=== PATIENT | male | born 1940 | race Caucasian/White ===

== ENCOUNTER 2017-03-20 00:51 | Inpatient (IN) | payer OTHER ==
[~2017-03-20] VITALS: Ht 180.3 cm; Wt 105.2 kg
[~2017-03-20 00:51] MED LIST: ASPIRIN EC81 M1 PO; JANUVIA100 M1 PO; LISINOPRIL40 M1 PO; METFORMIN HCL1000 M1 PO; TOPROL XL100 M1 PO; ZANTAC PO
--- NOTE | 2017-03-20 13:53 | Admission Core Measures ---
Admission Meds I reviewed the following Meds: Current Medications Sig/Suri Start time Last Medication Dose Stop Time Status Admin Acetaminophen 975 MG ONCE 03/20 0000 NR (Tylenol) 03/20 2359 Lisinopril 40 MG DAILY 03/21 1000 UNVr (Prinivil) Metformin HCl 1,000 MG BID 03/20 2200 UNVr (Glucophage) Metoprolol Succinate 100 MG DAILY 03/21 1000 UNVr (Toprol Xl) Oxycodone HCl 10 MG ONCE 03/20 0000 NR (Roxicodone) 03/20 2359 Sitagliptin Phosphate 100 MG DAILY 03/21 1000 UNVr (JANUVIA) Vancomycin HCl 1,500 MG ONCE 03/20 0000 NR Sodium Chloride 250 ML 03/20 2359 (Normal Saline 0.9%) Acute Coronary Syndrome Inclusion Criteria ACS Diagnosis No Inpatient Core Measures LDL Reminder: If No, please order W/I first 24hr of stay Congestive Heart Failure Inclusion Criteria CHF Diagnosis No Cerebrovascular accident Inclusion Criteria CVA/TIA Diagnosis No Inpatient Core Measures Bedside Swallow Eval Reminder: If BSE failed, place ST order Antithrombotic Reminder: Order Antithrombotic Medication by end of day 2 Antithrombotic Reminder: Document Reason Antithrombotic Not ordered by end of day 2 AFIB/Flutter Reminder: If Present, add to problem list AFIB/Flutter Reminder: Order Anticoag Medication for pts with AFIB/Flutter Atherosclerosis Reminder: If Present, add to problem list LDL Reminder: If No, please order W/I first 24hr of stay PT Order Reminder: If No, please order Venous thromboembolism Inpatient Core Measures VTE Risk Factors: Age > 40, Surgery No [facility] VTE prophylaxis d/t No contraindications No VTE Pharm Prophylaxis d/t No contraindications Inclusion Criteria - Per Current guidelines, there needs to be overlap - treatment for the first 5 days of Warfarin therapy. - Parenteral Anticoagulation (IV or SC) needs to be - given along with Warfarin therapy. VTE Diagnosis No VTE Type NONE VTE Confirmed by (Test) NONE Problem List As ranked by this Provider includes Assessment & Plan 1. Unilateral primary osteoarthritis, right knee HOME MEDS Home Med List Aspirin (Ecotrin*) 81 MG TABLET.DR 1 TAB PO DAILY CARDIAC (Reported) Lisinopril 40 MG TABLET 1 TAB PO DAILY HTN (Reported) Metformin HCl 1,000 MG TABLET 1 TAB PO BID DM II (Reported) Metoprolol Succ XL (Toprol XL) 100 MG TAB.ER.24H 1 TAB PO DAILY HTN (Reported ) Sitagliptin Phosphate (Januvia) 100 MG TABLET 1 TAB PO DAILY DM II (Reported) [ZANTAC] 75 MG PO DAILY GERD (Reported)
[2017-03-20] MEDS ORDERED: COLACE100 M1 PO (13:55)
[2017-03-20] MEDS ORDERED: DILAUDID2 M1 PO (13:55)
[2017-03-20] MEDS ORDERED: MS CONTIN15 M2 PO (13:55)
[2017-03-20] MEDS ORDERED: MIRALAX17 G1 PO (13:55)
[2017-03-20] MEDS ORDERED: ASPIRIN EC325 M2 PO (13:55)
--- NOTE | 2017-03-20 13:58 | Patient Discharge Instructions ---
Discharge Instructions General Discharge Information You were seen/treated for: Right knee pain related to unilateral primary osteoarthritis You had these procedures: Right total knee replacement Watch for these problems: Increasing pain despite the use of pain medication Increasing redness, warmth or swelling Drainage of any type from incision Inability to bear weight on operative leg Persistent nausea and vomiting Fever greater than 101.5 degrees Do not soak the wound: Yes No bath, but you may shower: Yes Other wound care: Please keep wound clean and dry. No ointments or lotions of any type on or near incision at any time. No exceptions. Your dressing will be changed by your nurse on the second day after your surgery. Daily dry dressing changes are recommended each day thereafter. Do not soak your wound in a bath at any time until otherwise indicated by your surgeon. You may shower, please dry wound immediately after shower with a clean towel. Special Instructions: Aspirin: You are taking this medication to help prevent blood clot formation. Please take with food to protect your stomach lining. Please take as directed. Constipation: Pain medication can cause constipation. Dr. Quinteros has recommended that you take Colace and miralax each day. You may discontinue this medication if you develop loose stool or diarrhea. If you wish to continue this medication, it is available over the counter. If you are unable to move your bowels after several days, if you are unable to pass gas and are developing bloating, nausea, or vomiting as a result, please contact your doctor. Diet Continue normal diet: Yes Recommended Diet: Diabetic Activity Full Activity/No Limits: No Activity Self Limited: Yes Pounds, do NOT lift more than: 10 Acute Coronary Syndrome Inclusion Criteria At DC or during hospital stay patient has or had the following: ACS DIAGNOSIS No Discharge Core Measures Meds if any: Prescribed or Continued at Discharge Meds if any: NOT Prescribed or Continued at Discharge Congestive Heart Failure Inclusion Criteria At DC or during hospital stay patient has or had the following: CHF DIAGNOSIS No Discharge Core Measures Meds if any: Prescribed or Continued at Discharge Meds if any: NOT Prescribed or Continued at Discharge Cerebrovascular accident Inclusion Criteria At DC or during hospital stay patient has or had the following: CVA/TIA Diagnosis No Discharge Core Measures Meds if any: Prescribed or Continued at Discharge Meds if any: NOT Prescribed or Continued at Discharge Venous thromboembolism Inclusion Criteria VTE Diagnosis No VTE Type NONE VTE Confirmed by (Test) NONE Discharge Core Measures - Per Current guidelines, there needs to be overlap - treatment for the first 5 days of Warfarin therapy. - If discharged on Warfarin prior to 5 days of - overlap therapy, the patient will need to be - assessed for post discharge needs including - *Post discharge parental anticoagulation - *Warfarin and/or parental anticoagulation education - *Follow up date to check INR post discharge At least 5 days overlap therapy as Inpatient No Meds if any: Prescribed or Continued at Discharge Note: Overlap Therapy is Warfarin and Anticoagulant Meds if any: NOT Prescribed or Continued at Discharge
--- NOTE | 2017-03-20 14:01 | Surgical Discharge Summary ---
Visit Information Visit Dates Admission Date: 03/20/17 Discharge Date: 03/23/17 History of Present Illness Chief Complaint: Right knee pain secondary to unilateral primary osteoarthritis Medical History Isolation History: Standard Surgical History Pertinent Surgical History: non-contributory Review of Systems: See H&P Hospital Course Course Attending Physician: CADEN OSBORN MD Primary Care Physician: MYNOR LENTZ MD Hospital Course: Patient was admitted to the hospital for an elective total joint replacement. The procedure was tolerated well and patient was transferred to a general surgical floor. Diet was advanced and tolerated, and the patient voided spontaneously. The patient was evaluated and treated by physical therapy. At the time of hospital discharge, the vital signs were stable, neurovascular status was intact, and pain was controlled with the use of oral pain medications. Complications: none Allergies: Coded Allergies: Penicillins (CHILDHOOD 03/12/17) Disposition Summary Disposition Principal Diagnosis: Unilateral primary osteoarthritis right knee Additional Diagnosis: same as above s/p right total knee replacement (03/20/17) Discharge Disposition: home health services Discharge Instructions General Discharge Information Code Status: Full Code Patient's Diet: Diabetic, advance as tolerated Patient's Activity: WBAT Follow-Up Instructions/Appts: Follow up with Dr. Osborn in 6 weeks from date of surgery. Please call his office to arrange and/or confirm this appointment. Medications at Discharge Discharge Medications: Stop taking the following medications: Aspirin (Ecotrin*) 81 MG TABLET. ORAL DAILY Continue taking these medications: Lisinopril (Lisinopril) 40 MG TABLET 1 Tablet ORAL DAILY Metformin HCl (Metformin HCl) 1,000 MG TABLET 1 Tablet ORAL TWICE DAILY Metoprolol Succ XL (Toprol XL) 100 MG TAB.ER.24H 1 Tablet ORAL DAILY [ZANTAC] 75 Milligram ORAL DAILY Sitagliptin Phosphate (Januvia) 100 MG TABLET 1 Tablet ORAL DAILY Start taking the following new medications: Aspirin (Ecotrin*) 325 MG TABLET. 1 Tablet ORAL TWICE DAILY Qty = 60 No Refills Docusate Sodium (Colace) 100 MG CAPSULE 1 Capsule ORAL TWICE DAILY Qty = 14 No Refills Instructions: DISCONTINUE USE IF YOU DEVELOP LOOSE STOOL OR DIARRHEA Polyethylene Glycol 3350 (Miralax) 17 GRAM POWD.PACK 1 Packet ORAL DAILY Qty = 7 No Refills Instructions: dissolve in water, DISCONTINUE USE IF YOU DEVELOP LOOSE STOOL OR DIARRHEA Hydromorphone HCl (Dilaudid) 2 MG TABLET 1-2 Tablet ORAL EVERY 4-6 HOURS NEEDED as needed for PAIN Qty = 36 No Refills Copies To: TOR DUKES,MYNOR Paulson
[2017-03-20 17:30] VITALS: BP 128/70
--- NOTE | 2017-03-20 17:35 | Operative Report ---
Operative/Inv Procedure Report Surgery Date: 03/20/17 Name of Procedure: Right total knee replacement Pre-Operative Diagnosis: Primary right knee DJD Post-Operative Diagnosis: Same Estimated Blood Loss: 50ml to 100ml Surgeon/Community Educator: CADEN OSBORN MD Anesthesia: block Operative/Procedure Note Note: Description of Procedure: The patient was taken to the operating room and positively identified. After induction of spinal anesthesia and administration of appropriate pre-operative antibiotics, the patient was positioned supine on the operating room table and all bony prominences were well padded. A well-padded pneumatic tourniquet was placed on the right upper thigh. After performing a surgical timeout, the right lower extremity was prepped and draped in the usual sterile fashion. After exsanguination with Esmarch the tourniquet was inflated to 250mm of mercury. A standard medial parapatellar approach was made to the knee. This was carried down through skin and subcutaneous tissue to the level of the fascia. Meticulous hemostasis was maintained with Bovie electrocautery. The extensor mechanism and patellar retinaculum were opened sharply and the patella was everted. The infrapatellar fat was resected in order to improve exposure. Osteophytes were trimmed from the patella and femoral condyles and the patella was re-everted and tucked laterally. A medial release was performed and the cruciate ligaments were resected. The tibia was then subluxed anteriorly. Utilizing the appropriate extra-medullary guide, the proximal tibia was trimmed perpendicular to the long axis of the tibial shaft. Attention was then turned to the femur. After opening the medullary canal, the distal femoral cut was made in 6 degrees of valgus utilizing the appropriate intra-medullary guide. The extension gap was checked and found to be appropriate. The femur was then sized and the remainder of the femoral cuts were made with a size 7 4-in-1 femoral cutting guide. The flexion gap was checked and found to be symmetric and appropriate. The knee was then trialed with a size 7 femoral component, a size 7 tibial component and a size 11 mm polyethylene insert. The patella was trimmed to accept an A 38 patella. This yielded excellent range of motion, stability and patellar tracking. All trial components were removed and the knee was copiously irrigated with sterile saline. All components were cemented into place with Carmel Simplex cement. All the components were of the Carmel Triathlon knee system of the above stated sizes. The knee was again irrigated after cementation. The extensor mechanism and patellar retinaculum were repaired using interrupted #1 vicryl suture. The skin was re-approximated with 2-0 vicryl and closed with fara. A sterile dressing was applied, the tourniquet was deflated, the patient was awakened and taken to the recovery room in satisfactory condition.
--- NOTE | 2017-03-20 20:08 | NUR ---
1730 PATIENT ARRIVED TO FLOOR. ALERT AND ORIENTED X 3. ON ROOM AIR. DENIES SHORTNESS OF BREATH VITAL SIGNS STABLE. DENIES CHEST PAIN. + PULSES. HAS DEFIBRILLATOR SLIGHT NUMBNESS TO BLE. WILL CONTINUE TO MONITOR BED LOW AND LOCKED. CALL LIGHT WITHIN REACH NO DISCOMFORT/DISTRESS AT THIS TIME
[2017-03-20 20:09] VITALS: BP 104/70
--- NOTE | 2017-03-20 20:11 | PN- Orthopedic ---
Subjective Subjective: POSTOP CHECK mild postop pain rle, no n/v/cp/sob, no oob, dtv postop, trini reg diet Objective Vital Signs and I&Os Vital Signs Date Time Temp Pulse Resp B/P B/P Pulse O2 O2 Flow FiO2 Mean Ox Delivery Rate 03/20 1730 97.6 50 18 128/70 94 Room Air Physical Exam: GEN: NAD CARD: S1S2 RRR PULM: CTAB ABD: soft, nt EXT: RLE dressing CDI, ONQ in place, ttp at incision, feet warm, palp pedal pulses, sensation grossly intact, +dorsi/plantar flexion, calves soft nt, ALPS on bl Assessment/Plan Assessment/Plan A: 76yoM POD #0 sp R TKR, stable with appropriate postop pain P: - DVT ppx: ASA - ada diet as tolerated - prn pain meds - OOB, ambulate, WBAT, PT - abx x23hr postop ppx - am labs - OnQ pump - home meds, accuchecks - will dw attending Core Measures/Miscellaneous Venous Thromboembolism VTE Risk Factors: Surgery VTE Contraindications: No Contraindications VTE Diagnosis: No VTE Type: NONE VTE Confirmed by (Test): NONE Beta Brianna Is Beta Brianna a Home Med? Yes If Yes, Was This Ordered Today? Yes Antibiotics Is Patient on Antibiotics? Yes If Yes: prophylaxis
[2017-03-20 21:50] VITALS: BP 100/60
[2017-03-21] VITALS: BP 100/64
[2017-03-21 04:21] VITALS: BP 102/60
[2017-03-21 07:56] VITALS: BP 110/60
--- NOTE | 2017-03-21 08:23 | PN- Orthopedic ---
Subjective Subjective: Patient with mild pain to the posterior knee region. No acute events overnight. No fever or flulike illness. He has yet to be out of bed. Objective Vital Signs and I&Os Vital Signs Date Time Temp Pulse Resp B/P B/P Pulse O2 O2 Flow FiO2 Mean Ox Delivery Rate 03/21 0756 97.6 55 18 110/60 96 Room Air 03/21 0421 97.9 59 20 102/60 94 Room Air 03/21 0000 97.7 60 20 100/64 93 Room Air 03/20 2223 Room Air 03/20 2150 97.6 57 20 100/60 92 Room Air 03/20 2009 98.4 54 18 104/70 95 03/20 1730 97.6 50 18 128/70 94 Room Air Intake & Output 03/21 1600 03/21 0803/21 0000 03/20 1600 03/20 0803/20 0000 Intake Total 840 600 Output Total 250 350 Balance 590 250 Intake, IV 600 Intake, Oral 240 600 Output, Urine 250 350 Patient 232 lb Weight Physical Exam: Well-developed well-nourished no apparent distress. HEENT: Atraumatic, extraocular motion intact Neck: Supple, no lymphadenopathy Respiratory: No respiratory distress Extremities: No edema Right lower extremity dressing in place, Range of motion is 0-60. Compression wrap in place. ALPS in place Neurovascularly intact distally Bilateral calves are supple, nontender. Neuro: Alert and oriented x3 Psych: Mood affect normal, normal memory normal judgment. Skin: Warm and dry, no rash on exposed skin Results Last 48 Hours of Labs: Laboratory Tests 03/21 726 Chemistry Sodium Pending Potassium Pending Chloride Pending Carbon Dioxide Pending Anion Gap Pending BUN Pending Creatinine Pending BUN/Creatinine Ratio Pending Hematology CBC w Diff Pending WBC Pending RBC Pending Hgb Pending Hct Pending MCV Pending MCH Pending RDW Pending Plt Count Pending MPV Pending PUBS MCHC Pending Assessment/Plan Assessment/Plan Postop day #1 status post right total knee arthroplasty. Perioperative antibiotics. Follow-up a.m. labs Pain medication as needed Continue On-Q pump until tomorrow. DC IV fluids Out of bed with physical therapy, weightbearing as tolerated work on range of motion. Dressing change postop day #2 eliquis for DVT prophylaxis Core Measures/Miscellaneous Venous Thromboembolism VTE Risk Factors: Surgery VTE Contraindications: No Contraindications VTE Diagnosis: No VTE Type: NONE VTE Confirmed by (Test): NONE Beta Brianna Is Beta Brianna a Home Med? Yes If Yes, Was This Ordered Today? Yes Antibiotics Is Patient on Antibiotics? Yes If Yes: prophylaxis
[2017-03-21 08:25] LABS: ABSOLUTE BASOPHIL COUNT 0 /CUMM (0.0-0.2); ABSOLUTE EOSINOPHIL COUNT 0 /CUMM (0.0-0.7); ABSOLUTE GRANULOCYTE CT 10.6 /CUMM (1.4-6.5); ABSOLUTE LYMPH COUNT 0.9 /CUMM (1.2-3.4); BASOPHIL % 0 % (0.0-2.0); EOSINOPHIL % 0 % (0-5); HEMATOCRIT 38.8 % (42-52); MEAN CORPUSCULAR HGB 31.1 PG (27.0-31.0); MEAN CORPUSCULAR HGB CONC 33.7 G/DL (33.0-37.0); MEAN CORPUSCULAR VOLUME 92.2 FL (80.0-94.0); MEAN PLATELET VOLUME 7.8 FL (7.4-10.4); PLATELET COUNT 199 /CUMM (130-400); RBC DISTRIBUTION WIDTH 14.4 % (11.5-14.5); WHITE BLOOD CELL COUNT 12.5 /CUMM (4.8-10.8)
[2017-03-21 08:59] LABS: GRANULOCYTE % 84.6 % (42.2-75.2)
[2017-03-21 10:00] VITALS: BP 112/60
[2017-03-21 14:26] VITALS: BP 100/54
[2017-03-21 22:29] VITALS: BP 122/64
[2017-03-22 06:39] VITALS: BP 120/60
--- NOTE | 2017-03-22 07:57 | PN- Orthopedic ---
Subjective Subjective: pain r knee- tylenol helps, dislikes narcotics. no cp/sob. no nausea this am, no vomiting. OOB w PT- plan for STR Objective Vital Signs and I&Os Vital Signs Date Time Temp Pulse Resp B/P B/P Pulse O2 O2 Flow FiO2 Mean Ox Delivery Rate 03/22 0639 97.9 60 20 120/60 97 Room Air 03/21 2229 98.7 62 20 122/64 97 Room Air 03/21 1426 98.8 58 18 100/54 97 Room Air 03/21 1000 97.8 56 18 112/60 96 Room Air 03/21 0828 55 110/60 03/21 0828 55 110/60 Intake & Output 03/22 1600 03/22 0800 03/22 0000 03/21 1600 03/21 0803/21 0000 Intake Total 1020 240 840 600 Output Total 850 400 225 250 350 Balance 170 -160 -225 590 250 Intake, IV 900 600 Intake, Oral 120 240 240 600 Output, Urine 850 400 225 250 350 Patient 232 lb Weight Physical Exam: GEN: NAD CARD: S1S2 RRR PULM: no audible wheeze ABD: soft, nt EXT: rle dressing dc'ed, incision CDI, no erythema or drainage, ttp at incision, mild edema in leg, palp pedal pulses, gross sensation intact, +dorsi/plantar flexion, incision redressed Results Last 48 Hours of Labs: FS: 172, 200, 222 Assessment/Plan Assessment/Plan A: 76M POD2 sp R TKR, stable w appropriate postop pain, slight nausea this am, persistently elevated FS P: - OOB, ambulate, PT, WBAT - ada diet - increase RISS, monitor FS - prn pain meds, prn antiemetics - dc planning - will dw attending Core Measures/Miscellaneous Venous Thromboembolism VTE Risk Factors: Surgery VTE Contraindications: No Contraindications VTE Diagnosis: No VTE Type: NONE VTE Confirmed by (Test): NONE Beta Brianna Is Beta Brianna a Home Med? Yes If Yes, Was This Ordered Today? Yes Antibiotics Is Patient on Antibiotics? Yes If Yes: prophylaxis
[2017-03-22 14:30] VITALS: BP 130/80
[2017-03-22 23:08] VITALS: BP 120/50
[2017-03-23 06:47] VITALS: BP 110/60
--- NOTE | 2017-03-23 11:06 | PN- Orthopedic ---
Subjective Subjective: Reports pain controlled. PT reports he did well today with stairs. He is tolerating his diet. No nausea. Denies dizziness. No shortness of breath. No chest pains. Voiding well. No bm post-op documented. Objective Vital Signs and I&Os Vital Signs Date Time Temp Pulse Resp B/P B/P Pulse O2 O2 Flow FiO2 Mean Ox Delivery Rate 03/23 0828 64 110/64 03/23 0647 98.5 64 18 110/60 97 Room Air 03/23 0000 92 Room Air 03/22 2308 98.7 69 20 120/50 92 Room Air 03/22 1430 98.1 71 20 130/80 98 Room Air 03/22 1400 Room Air Intake & Output 03/23 1600 03/23 0800 03/23 0000 03/22 1600 03/22 0803/22 0000 Intake Total 0 095 797 4480 240 Output Total 250 300 300 850 400 Balance -250 -60 -200 170 -160 Intake, IV 0 900 Intake, Oral 0 240 100 120 240 Number 0 Bowel Movements Output, Urine 250 300 300 850 400 Physical Exam: General - alert & oriented x 3. comfortable. out of bed to chair. Lungs - clear bilaterally. no w/r/r. Cardiac - s1s2. reg. Abdomen - soft. nontender. Extremities - warm bilaterally. no c/c/e. right knee dressing changed. incision well approximated with fara. no erythema or exudates. calves soft and nontender b/l. nvi. Current Medications: Current Medications Sig/Suri Start time Last Medication Dose Route Stop Time Status Admin Acetaminophen 1,000 MG Q6P PRN 03/21 2230 AC 03/22 N/A 1 UNIT IV 0024 Aspirin 325 MG BID 03/20 2200 AC 03/23 PO 28 Docusate Sodium 100 MG BID 03/20 2200 AC 03/23 PO 0827 Famotidine 20 MG DAILY 03/21 1000 AC 03/23 PO 0828 Hydromorphone HCl 2 MG Q4P PRN 03/20 1730 AC 03/22 PO 1123 Hydromorphone HCl 4 MG Q4P PRN 03/20 1730 AC PO Insulin Aspart 0 TIDAC 03/22 1200 AC SC Insulin Aspart 0 AT BEDTIME 03/20 2200 AC SC Ketorolac 15 MG Q8P PRN 03/21 2230 AC 03/22 Tromethamine IV 03/24 2229 1515 Lisinopril 40 MG DAILY 03/21 1000 AC 03/23 PO 0828 Metformin HCl 1,000 MG BID 03/20 2200 AC 03/23 PO 0829 Metoprolol Succinate 100 MG DAILY 03/21 1000 AC 03/22 PO 0942 Morphine Sulfate 2 MG Q2P PRN 03/20 1730 AC IV Ondansetron HCl 4 MG Q6P PRN 03/20 1730 AC 03/22 IV 0721 Polyethylene Glycol 17 GM DAILY 03/21 1000 AC 03/23 PO 0829 Promethazine HCl 12.5 MG Q6P PRN 03/20 1730 AC 03/22 IV 03/27 1344 0950 Ropivacaine 500 ML ONCE ONE 03/20 1500 DC ON-Q Ball 1 BAG INJ 03/22 1659 Sitagliptin Phosphate 100 MG DAILY 03/21 1000 AC 03/23 PO 0827 Assessment/Plan Assessment/Plan This 76 year old male with hx htn, dm, gerd, chf, cad/cabg, is now POD#3 s/p right total knee replacement for primary right knee DJD tolerating diet pain controlled dressing changed continue asa bid - dvt ppx continue PT bowel regime in place. try dulcolax OK home meds ordered d/c planning, will d/w casework specialist stable for discharge will d/w Core Measures/Miscellaneous Venous Thromboembolism VTE Risk Factors: Surgery VTE Contraindications: No Contraindications VTE Diagnosis: No VTE Type: NONE VTE Confirmed by (Test): NONE Beta Brianna Is Beta Brianna a Home Med? Yes If Yes, Was This Ordered Today? Yes Antibiotics Is Patient on Antibiotics? Yes If Yes: prophylaxis
[2017-03-23 12:55] VITALS: BP 132/70
[2017-03-23] MEDS ORDERED: DILAUDID2 M1 PO (13:03)
[2017-03-23] MEDS ORDERED: MIRALAX17 G1 PO (13:03)
[2017-03-23] MEDS ORDERED: COLACE100 M1 PO (13:03)
[2017-03-23] MEDS ORDERED: ASPIRIN325 M2 PO (13:03)
== END 2017-03-23 15:22 | disposition home health service (06) | DRG 470 ==
LOC: SDA 00:51 → ENRESERV 15:58 → ENTRNSPT 16:44 → 2NA 17:22 → CMPTRNSPT 17:46 → ENPENDDIS 03-23 12:59 → 2NA 03-23 15:22
PROVIDERS: Nurse Practitioner; ADMIT Orthopaedic Surgery
PROC: 0SRC0J9 Replacement of Right Knee Joint with Synthetic Substitute, Cemented, Open Approach (ICD-10-PCS; principal; 2017-03-20)
PROC: 3E0T3CZ (ICD-10-PCS; 2017-03-20)
DX: M17.11 Unilateral primary osteoarthritis, right knee (principal); I50.9 Heart failure, unspecified; I11.0 Hypertensive heart disease with heart failure; E11.9 Type 2 diabetes mellitus without complications; I25.5 Ischemic cardiomyopathy; D75.1 Secondary polycythemia; I25.10 Atherosclerotic heart disease of native coronary artery without angina pectoris; K21.9 Gastro-esophageal reflux disease without esophagitis; I25.2 Old myocardial infarction; E78.5 Hyperlipidemia, unspecified; E55.9 Vitamin D deficiency, unspecified; Z79.84 Long term (current) use of oral hypoglycemic drugs; Z95.1 Presence of aortocoronary bypass graft
CPT/HCPCS: 2NASP; 36415; 82436; 88305; 97110-GO; 97116-GO; 97161-GP; 97530-GO; C1713; J0131; J2405; J2550; J2795; J3370; J7040; J7508